=== PATIENT | female | born 1950 | race Caucasian/White ===

== ENCOUNTER 2017-02-11 17:19 | Emergency (ER) | payer MEDICARE, OTHER ==
[2017-02-11 17:32] VITALS: BP 146/91
--- NOTE | 2017-02-11 17:41 | ED Physician Documentation ---
PD HPI HEENT - Stated complaint Stated Complaint: L EAR PAIN - Chief complaint Chief Complaint: Heent - History obtained from History obtained from: Patient - History of Present Illness Timing - onset: Other (Sore throat for a few days but L ear pain since last night. No fever.) Review of Systems Constitutional: denies: Fever, Chills Ears: reports: Ear pain, Tinnitus/ringing. denies: Drainage/discharge, Foreign body Nose: reports: Rhinorrhea / runny nose. denies: Congestion Throat: reports: Sore throat PD PAST MEDICAL HISTORY - Past Medical History Cardiovascular: Hypertension - Past Surgical History Past Surgical History: No - Present Medications Home Medications: Ambulatory Orders Medication Instructions Recorded Confirmed Amox/Clav 875/125 [Augmentin] 1 each PO Q12H #20 tablet 02/11/17 Fluconazole [Diflucan] 150 mg PO ONCE #1 tablet 02/11/17 Guaifenesin/Pseudoephedrne HCl 1 each PO BID PRN #20 tab.er.12h 02/11/17 [Mucinex D ER 600-60 mg Tablet] Hydrochlorothiazide 12.5 mg PO DAILY 02/11/17 02/11/17 Levothyroxine [Synthroid] 25 mg PO DAILY 02/11/17 02/11/17 Pantoprazole [Protonix] 40 mg PO DAILY 02/11/17 02/11/17 - Allergies Allergies/Adverse Reactions: Allergies Allergy/AdvReac Type Severity Reaction Status Date / Time No Known Drug Allergies Allergy Verified 02/11/17 17:26 - Social History Does the pt smoke?: No Smoking Status: Never smoker Does the pt drink ETOH?: No Does the pt have substance abuse?: No PD ED PE NORMAL - Vitals Vital signs reviewed: Yes - General General: Alert and oriented X 3, No acute distress - HEENT HEENT: PERRL, EOMI, Other (Bad LOM) - Neck Neck: Supple, no meningeal sign, No bony TTP - Cardiac Cardiac: RRR, No murmur - Respiratory Respiratory: No respiratory distress, Clear bilaterally - Abdomen Abdomen: Non tender - Neuro Neuro: Alert and oriented X 3, Normal speech - Psych Psych: Normal mood, Normal affect Results - Vitals Vitals: Vital Signs - 24 hr 02/11/17 17:23 Temperature 36.5 C Heart Rate 68 Respiratory 20 Rate Blood Pressure 146/91 H O2 Saturation 99 Oxygen O2 Source Room air Departure - Departure Disposition: 01 Home, Self Care Clinical Impression: LOM (left otitis media) Qualifiers: Otitis media type: suppurative Chronicity: acute Recurrence: recurrent Spontaneous tympanic membrane rupture: without spontaneous rupture Qualified Code(s): H66.005 - Acute suppurative otitis media without spontaneous rupture of ear drum, recurrent, left ear Condition: Good Record reviewed to determine appropriate education?: Yes Instructions: ED Otitis Media Acute Adult Follow-Up: Erika Rubio PA [Provider Admit Priv/Credential] - Prescriptions: Amox/Clav 875/125 [Augmentin] 1 each PO Q12H #20 tablet Fluconazole [Diflucan] 150 mg PO ONCE #1 tablet Guaifenesin/Pseudoephedrne HCl [Mucinex D ER 600-60 mg Tablet] 1 each PO BID PRN #20 tab.er.12h PRN Reason: congestion Comments: Call your doctor to arrange a follow-up appointment, make the next available appointment. In the interim, return anytime if worse or if new symptoms develop. Your blood pressure was elevated today on check into the emergency department. This does not mean that you have hypertension, it is a common phenomenon to come to the emergency department and have elevated blood pressure. I recommend that she see her primary care physician within the week to have it rechecked when you are feeling better.
[2017-02-11] MEDS ORDERED: AMOX/CLAV 875 MG/125 MG TABLET PO ONE (17:42)
[2017-02-11] MEDS: AMOX/CLAV 875 MG/125 MG TABLET PO STA (17:45)
== END 2017-02-11 17:52 | disposition home or self-care (01) ==
LOC: ED 17:19
DX: H66.005 Acute suppurative otitis media without spontaneous rupture of ear drum, recurrent, left ear (principal); I10 Essential (primary) hypertension
CPT/HCPCS: 99283

== ENCOUNTER 2022-03-04 21:57 | Emergency (ER) | payer MEDICARE, OTHER ==
[2022-03-04 22:58] LABS: BASOPHILS % (AUTO) 0.3 %; EOSINOPHILS # (AUTO) 0.1 10^3/uL (0.0-0.7); EOSINOPHILS % (AUTO) 0.9 %; HCT - HEMATOCRIT 43.7 % (37.0-47.0); HGB - HEMOGLOBIN 14.7 g/dL (12.0-16.0); LYMPHOCYTES % (AUTO) 9.8 %; MEAN CORPUSCULAR HEMOGLOBIN 31.8 pg (27.0-31.0); MEAN CORPUSCULAR HGB CONC 33.6 g/dL (32.0-36.0); MEAN CORPUSCULAR VOLUME 94.6 fL (81.0-99.0); MEAN PLATELET VOLUME 8.8 fL (7.9-10.8); MONOCYTES # (AUTO) 0.5 10^3/uL (0.0-1.0); MONOCYTES % (AUTO) 5.4 %; NEUTROPHILS # (AUTO) 8.3 10^3/uL (1.5-6.6); NEUTROPHILS % (AUTO) 83.4 %; PLT - PLATELET COUNT 276 10^3/uL (130-450); RED BLOOD COUNT 4.62 10^6/uL (4.20-5.40); RED CELL DISTRIBUTION WIDTH 13.1 % (12.0-15.0); WHITE BLOOD COUNT 9.9 x10^3/uL (4.8-10.8)
[2022-03-04 23:11] LABS: ALBUMIN 4.6 g/dL (3.2-5.5); ALBUMIN/GLOBULIN RATIO 1.4 (1.0-2.2); BILIRUBIN,TOTAL 0.7 mg/dL (0.2-1.0); CALCIUM 10.2 mg/dL (8.5-10.3); CREATININE 0.9 mg/dL (0.4-1.0); POTASSIUM 3.7 mmol/L (3.5-5.0); TOTAL PROTEIN 7.8 g/dL (6.7-8.2)
[2022-03-05 00:03] LABS: GLUCOSE, URINE (UA) NEGATIVE (NEGATIVE); LEUKOCYTE ESTERASE, URINE NEGATIVE (NEGATIVE); OCCULT BLOOD,URINE TRACE-INTA (NEGATIVE); PROTEIN,URINE NEGATIVE (NEGATIVE)
[2022-03-05 00:11] LABS: BILIRUBIN,URINE NEGATIVE (NEGATIVE); CLARITY,URINE CLEAR (CLEAR); ICTOTEST,URINE NEGATIVE
[2022-03-05 00:12] LABS: BACTERIA,URINE Rare /HPF (None Seen); CASTS, URINE 3-5 Hyaline Casts /LPF; MUCUS,URINE Few Strands; RBC,URINE 0-5 /HPF (0-5); SQUAMOUS EPITHELIAL CELL,UR FEW Squamous (<= Few); WBC,URINE 0-3 /HPF (0-5)
[2022-03-05 00:32] VITALS: BP 144/73
--- NOTE | 2022-03-05 01:42 | CT Report ---
PROCEDURE: Abdomen/Pelvis WO INDICATIONS: RLQ PAIN, DIARRHEA TECHNIQUE: Noncontrast 5 mm thick sections acquired from the diaphragms to the symphysis. 5 mm coronal and sagi ttal reformats were then performed. For radiation dose reduction, the following was used: automated exposure control, adjustment of mA and/or kV according to patient size. COMPARISON: None. FINDINGS: Diffuse pancolonic diverticulosis without definite evidence of diverticulitis. There is no focal area of colonic wall thickening. There are a few areas of very subtle pericolonic fat stranding with some tiny mildly engorged vasa recta. This may represent baseline for the patient although the May also r epresent diverticulitis. Appendix normal. No bowel obstruction. Unenhanced solid abdominal visceral s tructures demonstrate no acute finding. Lung bases. No acute or suspicious osseous lesion. Lumbosacra l degenerative changes. IMPRESSION: Possible mild diverticulitis without perforation or abscess. Reviewed by: Julio Manzo MD on 03/05/2022 1:40 AM PDT Approved by: Julio Manzo MD on 03/05/2022 1:40 AM PDT Station ID: [id number]
--- NOTE | 2022-03-05 01:55 | ED Physician Documentation ---
PD HPI ABD PAIN - Stated complaint Stated Complaint: ABD PX - Chief complaint Chief Complaint: Abd Pain - History obtained from History obtained from: Patient - History of Present Illness Timing - onset: How many days ago (3) - Additional information Additional information: 72-year-old female with history of diverticulitis presents for intermittent, cramping lower abdominal cramping and diarrhea. Patient states that pain began in the right lower quadrant 3 days ago. At that time pain was sharp, intermittent, lasting briefly before resolving spontaneously. Today the pain was much worse, cramping in nature, and radiated from her right to her lower quadrant. Diarrhea began today, it has become watery. States this feels different from her diverticulitis. No mediations taken at home for symptoms.Patient denies fevers, chills, nausea, vomiting. Review of Systems Ten Systems: 10 systems reviewed and negative Constitutional: denies: Fever, Chills Nose: denies: Rhinorrhea / runny nose, Foreign Body Cardiac: denies: Chest pain / pressure, Palpitations, Pedal edema Respiratory: denies: Dyspnea, Cough, Wheezing GI: reports: Abdominal Pain, Diarrhea. denies: Nausea, Vomiting, Constipation, Bloody / black stool PD PAST MEDICAL HISTORY - Past Medical History Past Medical History: Yes Cardiovascular: Hypertension GI: Diverticulitis - Past Surgical History Past Surgical History: No - Present Medications Home Medications: Ambulatory Orders Medication Instructions Recorded Confirmed Amox/Clav 875/125 [Augmentin] 1 each PO Q12H #20 tablet 02/11/17 Fluconazole [Diflucan] 150 mg PO ONCE #1 tablet 02/11/17 Guaifenesin/Pseudoephedrne HCl 1 each PO BID PRN #20 tab.er.12h 02/11/17 [Mucinex D ER 600-60 mg Tablet] Levothyroxine [Synthroid] 25 mg PO DAILY 02/11/17 02/11/17 Pantoprazole [Protonix inj] 40 mg PO DAILY 02/11/17 02/11/17 hydroCHLOROthiazide 12.5 mg PO DAILY 02/11/17 02/11/17 [Hydrochlorothiazide] Amox/Clav 875/125 [Augmentin] 1 each PO Q12H #20 tablet 03/05/22 Fluconazole [Diflucan] 150 mg PO ONCE PRN #1 tablet 03/05/22 - Allergies Allergies/Adverse Reactions: Allergies Allergy/AdvReac Type Severity Reaction Status Date / Time No Known Drug Allergies Allergy Verified 03/04/22 22:34 - Social History Does the pt smoke?: No Smoking Status: Never smoker Does the pt drink ETOH?: No Does the pt have substance abuse?: No PD ED PE NORMAL - Vitals Vital signs reviewed: Yes - General General: Alert and oriented X 3, No acute distress, Well developed/nourished - HEENT HEENT: Atraumatic, PERRL, EOMI - Neck Neck: Supple, no meningeal sign, No bony TTP, C-Spine cleared by NEXUS criteria - Cardiac Cardiac: RRR, No murmur, Strong equal pulses - Respiratory Respiratory: No respiratory distress, Clear bilaterally - Abdomen Abdomen: Soft, Non distended, No organomegaly, Other (mild bilateral lower abdominal tenderness to deep palpation) - Back Back: No CVA TTP, No spinal TTP - Derm Derm: Normal color, Warm and dry, No rash - Extremities Extremities: No deformity, No tenderness to palpate, Normal ROM s pain, No edema - Neuro Neuro: Alert and oriented X 3, field services manager 2-12 intact, No motor deficit, No sensory deficit, Normal speech - Psych Psych: Normal mood, Normal affect Results - Vitals Vitals: Vital Signs - 24 hr 03/04/22 03/05/22 03/05/22 22:31 00:26 02:24 Temperature 37.2 C 37.1 C 37.1 C Heart Rate 67 98 98 Respiratory 18 16 16 Rate Blood Pressure 144/73 H 144/73 H 144/73 H O2 Saturation 98 98 98 Oxygen O2 Source Room air - Labs Labs: Laboratory Tests 03/04/22 03/04/22 03/04/22 22:55 22:55 23:50 WBC 9.9 RBC 4.62 Hgb 14.7 Hct 43.7 MCV 94.6 MCH 31.8 H MCHC 33.6 RDW 13.1 Plt Count 276 MPV 8.8 Neut # (Auto) 8.3 H Lymph # (Auto) 1.0 L Gillespie # (Auto) 0.5 Eos # (Auto) 0.1 Baso # (Auto) 0.0 Absolute Nucleated RBC 0.00 Nucleated RBC % 0.0 Sodium 136 Potassium 3.7 Chloride 99 L Carbon Dioxide 25 Anion Gap 12.0 BUN 21 H Creatinine 0.9 Estimated GFR (MDRD) 61 L Glucose 119 H Calcium 10.2 Total Bilirubin 0.7 AST 26 ALT 23 Alkaline Phosphatase 60 Total Protein 7.8 Albumin 4.6 Globulin 3.2 Albumin/Globulin Ratio 1.4 Lipase 44 Urine Color DARK YELLOW Urine Clarity CLEAR Urine pH 5.0 Ur Specific [place] >=1.030 H Urine Protein NEGATIVE Urine Glucose (UA) NEGATIVE Urine Ketones Urine Occult Blood TRACE-INTA Urine Nitrite Urine Bilirubin NEGATIVE Urine Urobilinogen Ur Leukocyte Esterase NEGATIVE Urine RBC 0-5 Urine WBC 0-3 Ur Squamous Epith Cells FEW Squamous Urine Bacteria Rare Urine Casts 3-5 Hyaline Casts Urine Mucus Few Strands Ur Microscopic Review INDICATED Urine Culture Comments NOT INDICATED PD MEDICAL DECISION MAKING - ED course Complexity details: reviewed results, re-evaluated patient, considered differential, d/w patient, d/w family ED course: Intermittent bilateral lower quadrant abdominal pain that is different from patient's typical diverticulitis flareups. Labs unremarkable, CT scan does show very mild diverticulitis. Given patient's history of recurrent diverticulitis will treat with antibiotics. Patient was counseled on her findings, she requested a paper and disc copy of her results, which were provided to her. Patient also requested Diflucan because she normally gets yeast infections after she takes antibiotics. Both antibiotics and the Diflucan were sent to the pharmacy of her choice. Departure - Departure Disposition: 01 Home, Self Care Clinical Impression: Abdominal pain, Diverticulitis Condition: Stable Instructions: Diverticulosis Diverticulitis, Diverticulitis Dc Prescriptions: Amox/Clav 875/125 [Augmentin] 1 each PO Q12H #20 tablet Fluconazole [Diflucan] 150 mg PO ONCE PRN #1 tablet PRN Reason: yeast infection Discharge Date/Time: 03/05/22 02:24
== END 2022-03-05 02:24 | disposition home or self-care (01) ==
LOC: ED 21:57
DX: K57.92 Diverticulitis of intestine, part unspecified, without perforation or abscess without bleeding (principal); I10 Essential (primary) hypertension
CPT/HCPCS: 36415; 80053; 81001; 81003; 83690; 85025; 87086; 99284